=== PATIENT | male | born 1990 | race Native Hawaiian/Other Pacific Islander ===

== ENCOUNTER 2018-11-27 23:26 | Emergency (ER) | payer OTHER ==
[2018-11-28 00:36] LABS: BASOPHILS # (AUTO) 0.1 10^3/uL (0.0-0.1); BASOPHILS % (AUTO) 0.8 %; EOSINOPHILS # (AUTO) 0.3 10^3/uL (0.0-0.7); LYMPHOCYTES # (AUTO) 2.6 10^3/uL (1.5-3.5); LYMPHOCYTES % (AUTO) 26.5 %; MEAN CORPUSCULAR HEMOGLOBIN 29.7 pg (27.0-31.0); MEAN CORPUSCULAR HGB CONC 33.1 g/dL (32.0-36.0); MEAN CORPUSCULAR VOLUME 89.6 fL (80.0-94.0); MEAN PLATELET VOLUME 7.8 fL (7.4-11.4); MONOCYTES # (AUTO) 0.8 10^3/uL (0.0-1.0); MONOCYTES % (AUTO) 8.3 %; NEUTROPHILS # (AUTO) 6.1 10^3/uL (1.5-6.6); NEUTROPHILS % (AUTO) 61.4 %; PLT - PLATELET COUNT 240 10^3/uL (130-450); RED BLOOD COUNT 5.03 10^6/uL (4.70-6.10); RED CELL DISTRIBUTION WIDTH 14.4 % (12.0-15.0); WHITE BLOOD COUNT 9.9 x10^3/uL (4.8-10.8)
[2018-11-28 00:37] LABS: ALBUMIN/GLOBULIN RATIO 0.9 (1.0-2.2); BILIRUBIN,TOTAL 0.6 mg/dL (0.2-1.0); CALCIUM 9.6 mg/dL (8.5-10.3); TOTAL PROTEIN 8.6 g/dL (6.7-8.2)
[2018-11-28] MEDS ORDERED: predniSONE 20 MG TABLET PO STA (00:42)
[2018-11-28] MEDS ORDERED: IBUPROFEN 800 MG TABLET PO STA (00:43)
--- NOTE | 2018-11-28 01:13 | ED Physician Documentation ---
History of Present Illness - Stated complaint Stated Complaint: R SIDE PX - Chief complaint Chief Complaint: Abd Pain - History obtained from History obtained from: Patient - History of Present Illness Timing: Other (several months ago) Pain level max: 8 Pain level now: 8 Improved by: nothing Worsened by: palpation - Additonal information Additional information: 28-year-old male presents the emergency department with right-sided rib pain for the past several months. He was seen at the [facility] and had a normal ultrasound of his liver. No gallbladder disease per patient. No fevers. No vomiting. Does have a history of gout in his feet. He is from [facility] Review of Systems Constitutional: denies: Fever, Chills Respiratory: denies: Cough GI: denies: Abdominal Pain, Nausea, Vomiting, Diarrhea : denies: Dysuria Skin: denies: Rash Musculoskeletal: denies: Neck pain, Back pain Neurologic: denies: Headache PD PAST MEDICAL HISTORY - Past Medical History Past Medical History: Yes Cardiovascular: None Respiratory: None Neuro: None Endocrine/Autoimmune: None GI: None : None HEENT: None Psych: None Musculoskeletal: Gout Derm: None - Past Surgical History Past Surgical History: Yes General: Other - Present Medications Home Medications: Ambulatory Orders Medication Instructions Recorded Confirmed Ibuprofen [Motrin] 800 mg PO Q8H PRN #30 tablet 11/28/18 predniSONE [Deltasone] 10 mg PO [id number] #42 tab 11/28/18 - Allergies Allergies/Adverse Reactions: Allergies Allergy/AdvReac Type Severity Reaction Status Date / Time No Known Drug Allergies Allergy Verified 11/27/18 23:42 - Social History Does the pt smoke?: No Smoking Status: Never smoker Does the pt drink ETOH?: Yes Does the pt have substance abuse?: No - Immunizations Immunizations are current?: Yes - POLST Patient has POLST: No PD ED PE NORMAL - Vitals Vital signs reviewed: Yes - General General: Alert and oriented X 3, No acute distress, Well developed/nourished - HEENT HEENT: PERRL, Moist mucous membranes - Neck Neck: Supple, no meningeal sign - Cardiac Cardiac: RRR - Respiratory Respiratory: No respiratory distress, Clear bilaterally - Abdomen Abdomen: Soft, Non tender, Non distended - Back Back: No spinal TTP - Derm Derm: Warm and dry - Extremities Extremities: No deformity - Neuro Neuro: Alert and oriented X 3 - Psych Psych: Normal mood, Normal affect - Free text exam Free text exam: Tender palpation right lower ribs, 9 through 10. Tender along the costochondral junction. No swelling. No redness. No skin changes. No right upper quadrant abdominal tenderness. Negative Reed sign. Results - Vitals Vitals: Vital Signs - 24 hr 11/27/18 11/28/18 23:41 01:17 Temperature 36.9 C 37.0 C Heart Rate 85 77 Respiratory 18 16 Rate Blood Pressure 131/81 H 117/63 O2 Saturation 97 97 Oxygen O2 Source Room air - Labs Labs: Laboratory Tests 11/28/18 11/28/18 11/28/18 00:15 00:15 00:15 WBC 9.9 RBC 5.03 Hgb 15.0 Hct 45.1 MCV 89.6 MCH 29.7 MCHC 33.1 RDW 14.4 Plt Count 240 MPV 7.8 Neut # (Auto) 6.1 Lymph # (Auto) 2.6 [place] # (Auto) 0.8 Eos # (Auto) 0.3 Baso # (Auto) 0.1 Absolute Nucleated RBC 0.00 Nucleated RBC % 0.0 Sodium 137 Potassium 4.1 Chloride 99 L Carbon Dioxide 26 Anion Gap 12.0 BUN 24 H Creatinine 1.0 Estimated GFR (MDRD) 88 L Glucose 103 H Uric Acid 7.9 H Calcium 9.6 Total Bilirubin 0.6 AST 29 ALT 41 Alkaline Phosphatase 67 Total Protein 8.6 H Albumin 4.0 Globulin 4.6 H Albumin/Globulin Ratio 0.9 L Lipase 25 - Rads (name of study) Right ribs with chest x-ray Radiology: Prelim report reviewed, EMP read contemporaneously, See rad report (No acute abnormality) PD MEDICAL DECISION MAKING - ED course Complexity details: reviewed results, re-evaluated patient, considered differential, d/w patient ED course: 28-year-old male with what appears to be costochondritis versus gouty arthritis in the ribs. Will place on prednisone and Motrin for home. We will follow-up with his doctor for further care. Does have an elevated uric acid level as well. No evidence of gallbladder disease. Patient counseled regarding signs and symptoms for which I believe and urgent re-evaluation would be necessary. Patient with good understanding of and agreement to plan and is comfortable going home at this time This document was made in part using voice recognition software. While efforts are made to proofread this document, sound alike and grammatical errors may occur. Departure - Departure Disposition: 01 Home, Self Care Clinical Impression: Costochondritis, acute Gout attack Qualifiers: Gout site: unspecified site Gout etiology: unspecified cause Qualified Code(s): M10.9 - Gout, unspecified Condition: Good Instructions: ED Chest Pain Costochondritis, ED Diet Gout Follow-Up: your,doctor in 1 week [Other] Prescriptions: Ibuprofen [Motrin] 800 mg PO Q8H PRN #30 tablet PRN Reason: PAIN &/OR FEVER predniSONE [Deltasone] 10 mg PO [id number] #42 tab Comments: Take the medications as prescribed. Return if you worsen. Follow-up with your doctor for further evaluation and care. They may want to start you on a medication such as allopurinol to help prevent future attacks. If you do not respond to the steroids and anti-inflammatories, they may start you on colchicine as well. Drink plenty of water Discharge Date/Time: 11/28/18 01:20
[2018-11-28 01:18] VITALS: BP 117/63
--- NOTE | 2018-11-28 01:20 | XRAY Report ---
Reason: R rib pain, anterior 9-10 Procedure Date: 11/28/2018 Accession Number: [id number] / [id number] Procedure: XR - Ribs w/PA Chest RT CPT Code: FULL RESULT: EXAM: RIGHT RIB RADIOGRAPHY EXAM DATE: 11/28/2018 01:13 AM. CLINICAL HISTORY: R rib pain, anterior 9-10. COMPARISON: None. TECHNIQUE: 1 view of the chest and 4 views of the ribs. FINDINGS: Bones: No acute fracture seen. Lungs: No alveolar consolidation or pleural effusion. No pneumothorax. Mediastinum: Within exam limitations, cardiomediastinal silhouette is unremarkable. Other: None. IMPRESSION: 1. No acute abnormality seen in the chest or ribs. RADIA
== END 2018-11-28 01:20 | disposition home or self-care (01) ==
LOC: ED 23:26
DX: R07.81 Pleurodynia (principal); M10.9 Gout, unspecified
CPT/HCPCS: 36415; 71101; 80053; 83690; 84550; 85025; 99283; A9270; J7512